=== PATIENT | female | born 1950 | race Caucasian/White ===

== ENCOUNTER 2016-11-13 08:28 | Outpatient (CLI) | payer MEDICARE | END 2016-11-13 08:29 | disposition home or self-care (01) | DX: Z00.00 Encounter for general adult medical examination without abnormal findings (principal); E55.9 Vitamin D deficiency, unspecified; E78.5 Hyperlipidemia, unspecified ==

== ENCOUNTER 2018-05-16 07:58 | Day surgery (SDC) | payer MEDICARE ==
[2018-05-16] MEDS ORDERED: LACTATED RINGERS 1,000 ML IV ONE ×2 (08:34→10:15)
--- NOTE | 2018-05-16 09:01 | HISTORY & PHYSICAL EXAMINATION ---
HPI - Admitted From Admitted from: Other - History Obtained From Records Reviewed: RN notes reviewed, Old records reviewed History obtained from: Patient, Other (Chart) Exam limitations: No limitations - History of Present Illness Pain/Problem Location Description: No symptoms HPI Comment/Other: Dr. Carmella Pavon sends this very pleasant 68 year-old female to my office in consultation for the aforementioned reasons. She describes her bowel movements as regular and normal. She denies nausea, vomiting, constipation, diarrhea, melena, hematochezia, hematemesis, abdominal pain, unexplained weight loss, or change in the color, character or caliber of her stool. Her previous colonoscopy was done on April 06, [address] Dre Paredes and although he biopsied a lesion of the cecum turned out to be normal mucosa. 2 mg of Versed and 100 mcg of fentanyl were used. PMH/PSH - Past Medical History Cardiovascular: positive: None Respiratory: positive: Asthma Endocrine/Autoimmune: positive: None GI: positive: None : positive: None HEENT: positive: Chronic vision loss Psych: positive: None Musculoskeletal: positive: Osteoarthritis, Chronic back pain Derm: positive: None MRSA Hx?: No - Past Surgical History General: positive: Colonoscopy Ortho: positive: Other Social & Family Hx - Social History ETOH Use: Wine, Liquor Substance Use and Type: Marijuana Meds/Allgy - Allergies Allergies/Adverse Reactions: Allergies Allergy/AdvReac Type Severity Reaction Status Date / Time No Known Drug Allergies Allergy Verified 05/16/18 08:34 Review of Systems - Constitutional Constitutional: denies: Fatigue, Fever, Chills - Eyes Eyes: denies: Pain - Ears, Nose & Throat Ears, Nose & Throat: denies: Ear pain - Cardiovascular Cariovascular: denies: Irregular heart rate, Palpitations, Chest pain - Respiratory Respiratory: denies: Cough, Sputum production, Wheezing - Genitourinary Genitourinary: denies: Dysuria - Neurological Neurological: denies: General weakness, Focal weakness - Psychiatric Psychiatric: denies: Depression, Anxiety Exam - Vital Signs Reviewed Vital Signs: Yes Vital Signs: Vital Signs x48h Temp Pulse Resp BP Pulse Ox 05/16/18 08:13 36.4 C L 66 16 113/69 99 - Physical Exam General Appearance: positive: No acute distress Eyes Bilateral: positive: No lid inflammation, Conjunctivae nml, No scleral icterus ENT: positive: No signs of dehydration Neck: positive: Trachea midline Respiratory: positive: Chest non-tender Cardiovascular: positive: Regular rate & rhythm Abdomen: positive: Non-tender, No organomegaly, Nml bowel sounds, No distention Skin: positive: Color nml, Cyanosis Extremities: positive: Nml appearance Neurologic/Psychiatric: positive: Oriented x3 Impression/Plan - Problem List Problem List: Colonoscopy with possible biopsies and/or polypectomies. Indications, procedure , alternatives (such as barium enema, Cologuard and even no procedure at all) and risks including but not limited to perforation requiring operative repair, bleeding with its risks, and were fully explained to her. Conscious sedation was discussed at length with her as were its risks including but not limited to loss of airway, aspiration, respiratory depression, and not enough relief of pain and anxiety and she indicated that she wished to have conscious sedation for her procedure. I explained that MAC anesthesia is associated with a higher incidence of colon perforation. Review of her history does not reveal any significant systemic disease that would contraindicate use of conscious sedation or MAC anesthesia. All questions were fully answered. Verbal and written consent was obtained. The patient in preparation for her colonoscopy will be n.p.o. and her colon will be mechanically prepped. 35 minutes of [id number] time spent with the patient the majority of which was spent in discussion and completion of the requisite paperwork Maureen disclaimer: This document was created in part using voice recognition technology. Because of the inherent limitations of the system ([employer]s [employer] user manual states that the licensee understands that speech recognition is a statistical process and that recognition errors are inherent in the process), occasional same sounding word substitutions and grammatical errors do occur and persist despite proofreading. Please read this document for context.
[2018-05-16] MEDS ORDERED: fentaNYL 250 MCG/5 ML VIAL IVP ONE (09:10)
[2018-05-16] MEDS ORDERED: MIDAZOLAM 2 MG/2 ML VIAL IVP ONE (09:10)
[2018-05-16 11:11] VITALS: BP 111/65
[2018-05-16] MEDS ORDERED: ONDANSETRON ODT 4 MG TABLET ONE (11:42)
== END 2018-05-16 07:59 | disposition home or self-care (01) ==
LOC: SDS 07:58
PROVIDERS: ATTEND Surgery
PROC: 0DJD8ZZ Inspection of Lower Intestinal Tract, Via Natural or Artificial Opening Endoscopic (ICD-10-PCS; principal; 2018-05-16 09:00)
DX: Z12.11 Encounter for screening for malignant neoplasm of colon (principal); K57.30 Diverticulosis of large intestine without perforation or abscess without bleeding; K64.8 Other hemorrhoids
CPT/HCPCS: G0121; J3010; J7120; Q0162

== ENCOUNTER 2020-09-20 12:51 | Outpatient (CLI) | payer MEDICARE ==
--- NOTE | 2020-09-23 11:47 | DEXA Report ---
PROCEDURE: Dexa Spine and/or Hip INDICATIONS: MENOPAUSAL TECHNIQUE: Dual energy x-ray absorptiometry (DXA) was performed on a Blogic System. Regions measur ed are the AP Spine, femoral neck, and if needed forearm. COMPARISON: None. FINDINGS: Lumbar Spine: Bone Mineral Density 1.080 g/cm/cm,T score -0.8, normal Left Hip: Bone Mineral Density 0.861 g/cm/cm,T score -1.2, osteopenia Left Femoral Neck: Bone Mineral Density 0.753 g/cm/cm, T score -2.0, osteopenia (T score greater or equal to -1.0: NORMAL) (T score from -1.1 to -2.4: OSTEOPENIA) (T score less than or equal to -2.5 to: OSTEOPOROSIS) Impression: Osteopenia of the left hip overall and the left femoral neck but normal bone mineral dens ity at the lumbosacral spine. Patients with diagnosis of osteoporosis or osteopenia should have regular bone mineral density assess ment. For those eligible for Medicare, routine testing is allowed once every 2 years. Testing frequ ency can be increased for patients who have rapidly progressing disease or for those who are receivin g medical therapy to restore bone mass. Reviewed by: Cliff Alcala MD on 09/23/2020 11:45 AM PST Approved by: Cliff Alcala MD on 09/23/2020 11:45 AM PST Station ID: [id number]
== END 2020-09-20 12:52 | disposition home or self-care (01) ==
LOC: DI 12:51
PROVIDERS: ATTEND Registered Nurse
DX: M85.89 Other specified disorders of bone density and structure, multiple sites (principal)
CPT/HCPCS: 77080

== ENCOUNTER 2023-04-07 14:22 | Outpatient (CLI) | payer MEDICARE ==
--- NOTE | 2023-04-07 19:46 | DEXA Report ---
PROCEDURE: Dexa Spine and/or Hip INDICATIONS: OSTEOPENIA TECHNIQUE: Dual energy x-ray absorptiometry (DXA) was performed on a [employer] System. Regions measur ed are the AP Spine, femoral neck, and if needed forearm. COMPARISON: 09/20/2020 FINDINGS: Lumbar Spine: Bone Mineral Density 1.078 g/cm/cm,T score -0.8. Previously -0.8 Left Femoral Neck: Bone Mineral Density 0.764 g/cm/cm, T score -2.0. Previously -2.0 Left Hip: Bone Mineral Density 0.894 g/cm/cm,T score -0.9. Previously -1.2 (T score greater or equal to -1.0: NORMAL) (T score from -1.1 to -2.4: OSTEOPENIA) (T score less than or equal to -2.5 to: OSTEOPOROSIS) Impression: By WHO criteria, this patient has low bone density (osteopenia). No statistical interval change in bone mineral density of the lumbar spine. No statistical interval c hange in bone mineral density of the hip. Patients with diagnosis of osteoporosis or osteopenia should have regular bone mineral density assess ment. For those eligible for Medicare, routine testing is allowed once every 2 years. Testing frequ ency can be increased for patients who have rapidly progressing disease or for those who are receivin g medical therapy to restore bone mass. Reviewed by: Niels Rasmussen MD on 04/07/2023 6:45 PM BLADIMIR Approved by: Niels Rasmussen MD on 04/07/2023 6:45 PM AKNORMA Station ID: [id number]
== END 2023-04-07 14:23 | disposition home or self-care (01) ==
LOC: DI 14:22
PROVIDERS: ATTEND Registered Nurse
DX: M85.80 Other specified disorders of bone density and structure, unspecified site (principal)

== ENCOUNTER 2023-06-08 14:09 | Outpatient (CLI) | payer MEDICARE ==
--- NOTE | 2023-06-09 12:07 | Mammography Report ---
BILATERAL DIGITAL SCREENING MAMMOGRAM 3D/2D: 06/08/2023 CLINICAL: Routine screening. Baseline exam. No prior exams were available for comparison. There are scattered areas of fibroglandular density in both breasts (category b / 25%-50% glandular t issue). No significant masses, calcifications, or other findings are seen in either breast. IMPRESSION: NEGATIVE There is no mammographic evidence of malignancy. A 1 year screening mammogram is recommended. Based on the Tyrer Cuzick model (a risk assessment model) the patients lifetime risk is 4.3% and her 10 year risk is 3.8%. According to the ACR, ACS, and NCCN guidelines, an annual breast MRI exam alejandro g with mammogram is recommended if the patients lifetime risk is 20% or greater. This exam was interpreted at Station ID: [id number]. NOTE: For mammograms, a report in lay terms will be sent to the patient. Approximately 15% of breast malignancies will not be visualized mammographically. In the management of a palpable breast mass, a negative mammogram must not discourage biopsy of a clinically suspicious lesion. Electronically Signed By: Chip booker/danny:06/08/2023 15:14:09 letter sent: No_Letter ACR BI-RADS Category 1: Negative 3341F PARENCHYMAL PATTERN: (A) - The breast(s) demonstrate(s) scattered fibroglandular densities. BI-RADS CATEGORY: (1) - 1 Mammogram [id number] 1 year screening LATERALITY: (B)
== END 2023-06-08 14:10 | disposition home or self-care (01) ==
LOC: DI.S 14:09
DX: Z12.31 Encounter for screening mammogram for malignant neoplasm of breast (principal)

== ENCOUNTER 2024-06-07 10:18 | Outpatient (CLI) | payer MEDICARE ==
--- NOTE | 2024-06-07 16:08 | XRAY Report ---
PROCEDURE: Cervical Spine 2-3V INDICATIONS: NECK PAIN TECHNIQUE: 3 view(s) of the cervical spine were acquired. COMPARISON: None. FINDINGS: Bones: No fractures or dislocations to the C7-T1 level. The lateral masses of C1 appear intact on t he odontoid view. No suspicious bony lesions. Mild reversal of cervical curvature with apex at C5-6 . Trace anterolisthesis of C4 on C5. Multilevel moderate to severe degenerative disc space narrowing most notable at C5-6 and C6-7 with anterior osteophytes. Multilevel uncovertebral arthropathy. Soft tissues: No prevertebral soft tissue swelling. IMPRESSION: Degenerative changes most severe at C5-6 and C6-7. Reviewed by: Marycruz Orellana MD on 06/07/2024 4:07 PM PDT Approved by: Marycruz Orellana MD on 06/07/2024 4:07 PM PDT Station ID: [id number]
== END 2024-06-07 10:19 | disposition home or self-care (01) ==
LOC: DI.S 10:18
DX: M47.812 Spondylosis without myelopathy or radiculopathy, cervical region (principal)